=== PATIENT | male | born 1960 | race Caucasian/White ===

== ENCOUNTER → 2021-01-18 06:30 | Outpatient (CLI) | payer OTHER, SELFPAY ==
--- NOTE | 2021-01-18 06:43 | MRI_ITS ---
STUDY: MRI LUMBAR SPINE WITHOUT CONTRAST REASON FOR EXAM: Male, 60 years old. STENOSIS WITH NEUROGENIC CLAUDICATION TECHNIQUE: Standardized fat and water weighted pulse sequences were obtained in the sagittal and axial planes. COMPARISON: None FINDINGS: T12-L1: Normal endplates. Normal disc height, hydration and morphology. Normal bilateral facet joints. Normal central canal and bilateral lateral recesses. Normal bilateral intervertebral neural foramina. Normal lumbar lordosis. There is no substantial scoliosis. Normal conus medullaris that terminates at the T12/L1. L1-2: Mild bilateral facet hypertrophy with fluid in the facet joints consistent with instability. 2 mm retrolisthesis of L1 on L2 with a mild bilobed disc protrusion produces mild spinal stenosis and mild bilateral neural foraminal stenosis. L2-3: Mild bilateral facet hypertrophy with fluid in the facet joints consistent with instability. 2 mm retrolisthesis of L2 on L3 with a mild broad disc protrusion produces mild spinal stenosis and mild bilateral neural foraminal stenosis. L3-4: Mild bilateral facet hypertrophy with fluid in the facet joints consistent with instability. 2 mm retrolisthesis of L3 on L4 with a mild bilobed disc protrusion produces mild spinal stenosis and mild bilateral neural foraminal stenosis. L4-5: Mild bilateral facet hypertrophy and ligament flavum hypertrophy. No disc protrusion, spinal stenosis, or neural foraminal stenosis. L5-S1: Mild broad disc protrusion produces mild spinal stenosis and mild bilateral neural foraminal stenosis. Normal visualized sacral ala. Normal visualized paraspinous soft tissue structures. MRI/Spine Lumbar (Routine) IMPRESSION: Multilevel degenerative changes, as described above. Electronically Signed: Mariusz Liu MD at 9:44 EDT Tel , Service support ,
== END ==
PROVIDERS: PCP Family Medicine; Referring Provider Chiropractor; Visit Provider Chiropractor
DX: M48.062 Spinal stenosis, lumbar region with neurogenic claudication (principal)
CPT/HCPCS: 72148

== ENCOUNTER → 2021-02-06 07:53 | Outpatient (CLI) | payer OTHER, SELFPAY ==
--- NOTE | 2021-02-06 07:56 | NM_ITS ---
CLINICAL: 60-year-old male with reported history of low back discomfort. WHOLE BODY 99m Tc MDP RADIONUCLIDE BONE SCINTIGRAPHY WITH SPECT-CT LOWER THORACIC, LUMBAR SPINE COMPARISON: MRI of the lumbar spine report 01/18/2021 FINDINGS: Following the intravenous administration of approximately 25.0 mCi of 99m Tc MDP, whole body bone acquisitions and emission computed tomographic reconstructions of the lower thoracic and lumbar spine reveal: 1. Increased radiopharmaceutical concentration is identified in the 11th thoracic vertebra posteriorly on the right, fifth lumbar vertebra posteriorly on the left and right on whole body planar projections, 11th-12th thoracic, first-fifth lumbar vertebra primarily involving the anterior element at the intervertebral disc spaces and fifth lumbar vertebra at the facet joints bilaterally. 2. Enhanced tracer concentration appears evident in the acromioclavicular, glenohumeral and sternoclavicular compartments of both shoulders, mid to lower cervical spine, bilateral wrists, knees bilaterally. 3. The remaining skeletal structures are scintigraphically unremarkable with normal-appearing renal images and urinary bladder activity identified. NM/Bone Scan Whole Body IMPRESSION: 1. The increase in radiopharmaceutical concentration observed in the thoracic and lumbar spine on planar projections and SPECT reconstructions is commensurate with the presence of degenerative arthritis. 2. Degenerative arthrosis appears expressed in the bilateral shoulders, cervical spine, both wrist articulations, right and left knees. 3. There is no definitive typical scintigraphic evidence of spondylolysis on the current examination. Electronically Signed: Mariusz Pearce DO at 22:58 EDT Tel , Service support ,
== END ==
PROVIDERS: PCP Family Medicine; Referring Provider Orthopaedic Surgery; Visit Provider Orthopaedic Surgery
DX: M43.16 Spondylolisthesis, lumbar region (principal)
CPT/HCPCS: 78306; A9503